=== PATIENT | female | born 1940 | race African-American/Black ===

== ENCOUNTER 2020-03-04 09:14 | Emergency (ER) | payer MEDICARE, BC ==
[2020-03-04] MEDS ORDERED: Meclizine HCl 25 MG TAB ONE (10:14)
== END 2020-03-04 11:20 | disposition home or self-care (01) ==
LOC: NAV ERS 09:14
DX: R42 Dizziness and giddiness (principal); R11.2 Nausea with vomiting, unspecified; I10 Essential (primary) hypertension
CPT/HCPCS: 99283

== ENCOUNTER 2020-10-15 00:59 | Emergency (ER) | payer MEDICARE, BC | END 2020-10-15 01:32 | disposition home or self-care (01) | LOC: NAV ERS 00:59 | DX: F41.9 Anxiety disorder, unspecified (principal); I10 Essential (primary) hypertension; E78.5 Hyperlipidemia, unspecified; M19.90 Unspecified osteoarthritis, unspecified site | CPT/HCPCS: 99283 ==

== ENCOUNTER 2021-08-05 23:00 | Emergency (ER) | payer MEDICARE, BC ==
[2021-08-06 00:11] LABS: #Basophils 0.1 thou/uL (0.0-0.2); #Eosinphils 0.1 thou/uL (0.0-0.7); #Lymphocytes 1.5 thou/uL (1.20-3.40); #Monocytes 0.6 thou/uL (0.11-0.59); #Neutrophils 5.2 thou/uL (1.40-6.50); %Basophils 1.3 % (0.0-1.0); %Lymphocytes 20.1 % (21.0-51.0); %Monocytes 8.3 % (0.0-10.0); %Neutrophils 69.4 % (42.0-75.0); Hemoglobin 13.4 g/dL (12.0-16.0); Mean Corpuscular Hemoglobin 25.6 pg (27.0-31.0); Mean Corpuscular Volume 88.3 fL (78.0-98.0); Mean Platelet Volume 7.4 fL (7.4-10.4); Platelet Count 206 thou/uL (130-400); RBC Distribution Width 13.7 % (11.5-14.5); Red Blood Cell (RBC) Count 5.22 mill/uL (4.20-5.40); White Blood Cell (WBC) Count 7.5 thou/uL (4.8-10.8)
[2021-08-06 00:23] LABS: Anion Gap 16 mmol/L (10-20); BUN (Urea Nitrogen) 9 mg/dL (9.8-20.1); Calc. Creatinine Clearance 0 mL/min (70-130); Carbon Dioxide 25 mmol/L (23-31); Chloride 104 mmol/L (98-107); Glucose 103 mg/dL (83-110); Potassium 3.6 mmol/L (3.5-5.1); Sodium 141 mmol/L (136-145)
[2021-08-06 00:35] LABS: RBC Morphology Normal
== END 2021-08-06 00:38 | disposition home or self-care (01) ==
LOC: NAV ERS 23:00
DX: I10 Essential (primary) hypertension (principal); E78.5 Hyperlipidemia, unspecified; M19.90 Unspecified osteoarthritis, unspecified site; Z79.899 Other long term (current) drug therapy
CPT/HCPCS: 80048; 85025; 99283